=== PATIENT | female | born 1985 | race Hispanic/Latino ===

== ENCOUNTER 2016-11-16 03:32 | Inpatient (IN) | payer MEDICAID ==
[2016-11-16] MEDS ORDERED: LACTATED RINGERS 1,000 ML ONE (04:06)
--- NOTE | 2016-11-16 04:21 | History and Physical Report ---
History of Present Illness Date of examination: 11/16/16 Date of admission: 11/16/16 03:58 Chief complaint: Rupture of membranes this a.m. History of present illness: 31-year-old at 40+ weeks presents with spontaneous rupture of membranes; she is a [facility] patient. care was unremarkable per patient. She is status post rupture of membranes at 2 AM, in triage, she is 5 cm dilated and cephalic presentation. 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 denies: chlamydia, gonorrhea, hepatitis B, hepatitis C, HIV, syphilis, trichomonas Social history: , full code. denies: smoking, alcohol abuse, prescription drug abuse, IV drug use - Obstetrical History Expected Date of Delivery: 11/11/16 Actual Gestation: 40 Week(s) 5 Day(s) : 6 Para: 5 Number of Living Children: 4 ( from SIDs at 4 mths) Medications and Allergies Allergies Allergy/AdvReac Type Severity Reaction Status Date / Time No Known Allergies Allergy Verified 04/11/14 08:04 Home Medications Medication Instructions Recorded Confirmed Last Taken Type valACYclovir [Valtrex] 500 mg PO BID 04/11/14 04/11/14 04/10/14 History Review of Systems Constitutional: no fever, no chills, no sweats Cardiovascular: no chest pain, no orthopnea, no syncope, no lightheadedness, no shortness of breath Respiratory: no cough with sputum, no excessive sputum, no hemoptysis, no shortness of breath, no dyspnea on exertion Gastrointestinal: abdominal pain (Painful contractions), no nausea, no vomiting , no heartburn Genitourinary: leakage of fluid, contractions, no vaginal bleeding, no vaginal discharge, no genital sores - Vital Signs Vital signs: Vital Signs Pulse BP Pulse Ox 100 H 134/63 97 11/16/16 04:03 11/16/16 04:03 11/16/16 04:03 Temp Pulse Resp BP Pulse Ox 89 134/63 97 11/16/16 04:13 11/16/16 04:03 11/16/16 04:13 - Physical Exam Abdomen: Positive: normal appearance, soft. Negative: distention, tenderness, guarding, rigidity Uterus: Positive: enlarged (EFW ~ 3400 but limited due to body habitus) Adnexa: both: normal Extremities: Positive: normal - Obstetrical FHR: category 1 Cervical Dilatation: 5 (per RN) Results All other labs normal. Assessment and Plan A: 31 y/o at 40+5 wks in active labour -cat 1 tracing P: -Admit -Routine labs -Epidural when necessary -Anticipate Normal vaginal delivery - Patient Problems (1) 40 weeks gestation of Current Visit: Yes Status: Acute (2) Spontaneous rupture of amniotic membranes Current Visit: Yes Status: Acute (3) Grand multipara Current Visit: Yes Status: Acute (4) Grand multipara in labor Current Visit: Yes Status: Acute
[2016-11-16] MEDS ORDERED: ZOFRAN IV PRN ×2 (04:27→10:00)
[2016-11-16] MEDS ORDERED: BRETHINE IVP PRN (04:27)
[2016-11-16] MEDS ORDERED: ePHEDrine SULFATE IV PRN ×2 (04:27→05:31)
[2016-11-16] MEDS ORDERED: BRETHINE SUB-Q PRN (04:27)
[2016-11-16] MEDS ORDERED: SUBLIMAZE IV PRN (04:27)
[2016-11-16] MEDS ORDERED: MINERAL OIL PO PRN (04:27)
[2016-11-16 04:43] LABS: Hematocrit 37.5 % (30.3-42.9); Hemoglobin 12.6 gm/dl (10.1-14.3); Mean Corpuscular HGB Conc 34 % (30-34); Mean Corpuscular Hemoglobin 29 pg (28-32); Mean Corpuscular Volume 85 fl (79-97); Platelet Count 212 K/mm3 (140-440); Red Blood Count 4.39 M/mm3 (3.65-5.03); Red Cell Distribution Width 15.1 % (13.2-15.2); White Blood Count 11.9 K/mm3 (4.5-11.0)
[2016-11-16] MEDS ORDERED: LACTATED RINGERS 1,000 ML IV SCH (05:00)
[2016-11-16] MEDS ORDERED: PITOCin/NS 20 UNIT/1000ML DRIP 1,000 ML IV SCH ×2 (05:00→10:00)
[2016-11-16] MEDS ORDERED: PITOCin/NS 30 UNIT/500ML 500 ML IV SCH (05:00)
[2016-11-16] MEDS ORDERED: NARCAN 2 MG/2 ML IV PRN (05:31)
--- NOTE | 2016-11-16 05:31 | Anesthesia Consultation ---
Anesthesia Consult and Med Hx Date of service: 11/16/16 - Airway Anesthetic Teeth Evaluation: Good ROM Head & Neck: Adequate Mental/Hyoid Distance: Adequate Mallampati Class: Class II Intubation Access Assessment: Good - Pulmonary Exam CTA: Yes - Cardiac Exam Cardiac Exam: No Murmur - Pre-Operative Health Status ASA Pre-Surgery Classification: ASA2 Proposed Anesthetic Plan: Epidural - Pulmonary Hx Asthma: No COPD: No Hx Pneumonia: No - Cardiovascular System Hx Hypertension: No - Central Nervous System Hx Seizures: No Hx Psychiatric Problems: No - Endocrine Hx Renal Disease: No Hx End Stage Renal Disease: No Hx Hypothyroidism: No Hx Hyperthyroidism: No - Hematic Hx Anemia: No Hx Sickle Cell Disease: No - Other Systems Hx Alcohol Use: No
[2016-11-16] MEDS ORDERED: fentaNYL-BUPIV 2 MCG/ML-0.125% 100 ML EPIDURAL SCH (06:00)
[2016-11-16] MEDS: PITOCin/NS 30 UNIT/500ML 500 ML IV SCH ×3 (07:58→08:36)
--- NOTE | 2016-11-16 08:32 | Progress Note ---
Assessment and Plan - Patient Problems (1) 40 weeks gestation of Current Visit: Yes Status: Acute (2) Spontaneous rupture of amniotic membranes Current Visit: Yes Status: Acute (3) Grand multipara Current Visit: Yes Status: Acute (4) Grand multipara in labor Current Visit: Yes Status: Acute Subjective - Subjective Date of service: 11/16/16 Patient reports: new complaints, vaginal bleeding (bloody show), movement normal, contractions Objective - Vital Signs Vital Signs: Vital Signs - 12hr 11/16/16 11/16/16 11/16/16 04:03 04:08 04:13 Temperature Pulse Rate 100 H 95 H 89 Pulse Rate [ From Monitor] Respiratory Rate Blood Pressure 134/63 Blood Pressure [Right Arm] O2 Sat by Pulse 97 96 97 Oximetry 11/16/16 11/16/16 11/16/16 04:18 04:23 04:28 Temperature Pulse Rate 99 H 98 H 93 H Pulse Rate [ From Monitor] Respiratory Rate Blood Pressure Blood Pressure [Right Arm] O2 Sat by Pulse 97 98 95 Oximetry 11/16/16 11/16/16 11/16/16 04:33 04:38 04:44 Temperature Pulse Rate 95 H 103 H 105 H Pulse Rate [ From Monitor] Respiratory Rate Blood Pressure Blood Pressure [Right Arm] O2 Sat by Pulse 97 96 98 Oximetry 11/16/16 11/16/16 11/16/16 04:45 04:48 04:53 Temperature Pulse Rate 103 H 98 H 106 H Pulse Rate [ From Monitor] Respiratory Rate Blood Pressure Blood Pressure [Right Arm] O2 Sat by Pulse 94 96 96 Oximetry 11/16/16 11/16/16 11/16/16 04:58 05:03 05:09 Temperature Pulse Rate 103 H 100 H 108 H Pulse Rate [ From Monitor] Respiratory Rate Blood Pressure Blood Pressure [Right Arm] O2 Sat by Pulse 96 98 99 Oximetry 11/16/16 11/16/16 11/16/16 05:14 05:19 05:23 Temperature Pulse Rate 117 H 117 H 112 H Pulse Rate [ From Monitor] Respiratory Rate Blood Pressure Blood Pressure [Right Arm] O2 Sat by Pulse 80 L 99 97 Oximetry 11/16/16 11/16/16 11/16/16 05:26 05:29 05:31 Temperature Pulse Rate 105 H 99 H 106 H Pulse Rate [ From Monitor] Respiratory Rate Blood Pressure 130/105 125/69 122/65 Blood Pressure [Right Arm] O2 Sat by Pulse 93 96 Oximetry 11/16/16 11/16/16 11/16/16 05:33 05:34 05:37 Temperature Pulse Rate 107 H 107 H 96 H Pulse Rate [ From Monitor] Respiratory Rate Blood Pressure 122/60 121/60 Blood Pressure [Right Arm] O2 Sat by Pulse 99 Oximetry 11/16/16 11/16/16 11/16/16 05:39 05:40 05:43 Temperature Pulse Rate 106 H 107 H 110 H Pulse Rate [ From Monitor] Respiratory Rate Blood Pressure 117/58 120/61 Blood Pressure [Right Arm] O2 Sat by Pulse 99 99 Oximetry 11/16/16 11/16/16 11/16/16 05:46 05:48 05:52 Temperature Pulse Rate 105 H 105 H 98 H Pulse Rate [ From Monitor] Respiratory Rate Blood Pressure 114/58 108/58 Blood Pressure [Right Arm] O2 Sat by Pulse 98 Oximetry 11/16/16 11/16/16 11/16/16 05:53 05:57 05:58 Temperature Pulse Rate 107 H 101 H 104 H Pulse Rate [ From Monitor] Respiratory Rate Blood Pressure 108/57 Blood Pressure [Right Arm] O2 Sat by Pulse 97 97 Oximetry 11/16/16 11/16/16 11/16/16 06:04 06:08 06:09 Temperature Pulse Rate 98 H 95 H 97 H Pulse Rate [ From Monitor] Respiratory Rate Blood Pressure Blood Pressure [Right Arm] O2 Sat by Pulse 96 94 96 Oximetry 11/16/16 11/16/16 11/16/16 06:11 06:13 06:16 Temperature Pulse Rate 99 H 100 H Pulse Rate [ From Monitor] Respiratory 18 Rate Blood Pressure 121/60 110/55 Blood Pressure [Right Arm] O2 Sat by Pulse 97 Oximetry 11/16/16 11/16/16 11/16/16 06:18 06:20 06:25 Temperature Pulse Rate 95 H 99 H 100 H Pulse Rate [ From Monitor] Respiratory Rate Blood Pressure Blood Pressure [Right Arm] O2 Sat by Pulse 96 92 99 Oximetry 11/16/16 11/16/16 11/16/16 06:30 06:32 06:35 Temperature Pulse Rate 100 H 101 H 100 H Pulse Rate [ From Monitor] Respiratory Rate Blood Pressure 101/52 Blood Pressure [Right Arm] O2 Sat by Pulse 99 99 Oximetry 11/16/16 11/16/16 11/16/16 06:40 06:44 06:47 Temperature Pulse Rate 96 H 96 H 100 H Pulse Rate [ From Monitor] Respiratory Rate Blood Pressure 93/51 Blood Pressure [Right Arm] O2 Sat by Pulse 98 97 Oximetry 11/16/16 11/16/16 11/16/16 06:49 06:55 07:00 Temperature Pulse Rate 89 94 H 104 H Pulse Rate [ From Monitor] Respiratory Rate Blood Pressure Blood Pressure [Right Arm] O2 Sat by Pulse 96 99 98 Oximetry 11/16/16 11/16/16 11/16/16 07:01 07:05 07:10 Temperature Pulse Rate 98 H 98 H 116 H Pulse Rate [ From Monitor] Respiratory Rate Blood Pressure 99/51 Blood Pressure [Right Arm] O2 Sat by Pulse 98 98 Oximetry 11/16/16 11/16/16 11/16/16 07:15 07:20 07:25 Temperature Pulse Rate 98 H 110 H 95 H Pulse Rate [ From Monitor] Respiratory Rate Blood Pressure 101/51 Blood Pressure [Right Arm] O2 Sat by Pulse 98 98 98 Oximetry 11/16/16 11/16/16 11/16/16 07:30 07:35 07:39 Temperature 97.5 F L Pulse Rate 105 H 107 H 109 H Pulse Rate [ 105 H From Monitor] Respiratory 18 Rate Blood Pressure 101/58 Blood Pressure 101/58 [Right Arm] O2 Sat by Pulse 98 99 97 Oximetry 11/16/16 11/16/16 11/16/16 07:45 07:50 07:54 Temperature Pulse Rate 97 H 103 H 95 H Pulse Rate [ From Monitor] Respiratory Rate Blood Pressure 87/56 Blood Pressure [Right Arm] O2 Sat by Pulse 98 96 96 Oximetry 11/16/16 11/16/16 11/16/16 07:58 08:00 08:05 Temperature Pulse Rate 95 H 93 H 98 H Pulse Rate [ From Monitor] Respiratory Rate Blood Pressure 99/59 104/62 Blood Pressure [Right Arm] O2 Sat by Pulse 97 96 Oximetry 11/16/16 11/16/16 11/16/16 08:10 08:14 08:16 Temperature Pulse Rate 99 H 103 H 95 H Pulse Rate [ From Monitor] Respiratory Rate Blood Pressure 104/57 Blood Pressure [Right Arm] O2 Sat by Pulse 96 96 Oximetry 11/16/16 11/16/16 11/16/16 08:19 08:25 08:30 Temperature Pulse Rate 102 H 101 H 99 H Pulse Rate [ From Monitor] Respiratory Rate Blood Pressure Blood Pressure [Right Arm] O2 Sat by Pulse 97 94 95 Oximetry - Exam FHR: category 1 Cervical Dilatation: 8 - Labs Labs: Abnormal Labs 11/16/16 04:20 WBC 11.9 H Laboratory Results - last 24 hr 11/16/16 11/16/16 04:20 04:20 WBC 11.9 H RBC 4.39 Hgb 12.6 Hct 37.5 MCV 85 MCH 29 MCHC 34 RDW 15.1 Plt Count 212 Blood Type A POSITIVE Antibody Screen Negative
[2016-11-16] MEDS ORDERED: CYTOTEC ONE (09:16)
[2016-11-16] MEDS ORDERED: METHERGINE IM ONE ×2 (09:21→09:25)
--- NOTE | 2016-11-16 09:34 | Procedure Note ---
OB Delivery Note - Delivery Date of Delivery: 11/16/16 Surgeon: YARED OZUNA Estimated blood loss: 500cc - Vaginal Delivery presentation: vertex Delivery position: OA Intrapartum events: meconium, hemorrhage Delivery induction: none Delivery augmentation: pitocin Delivery monitor: external FHT, external uterine Route of delivery: Delivery placenta: spontaneous Delivery cord: 3 umbilical vessels Episiotomy: none Delivery laceration: none Anesthesia: epidural - Infant A at 1 minute: 9 at 5 minutes: 9 Infant Gender: Female (Del @ 09:21 AM, weight is 8#7 or 3827 gms)
[2016-11-16] MEDS ORDERED: CYTOTEC PR ONE ×2 (09:35→10:30)
[2016-11-16] MEDS ORDERED: SODIUM CHLORIDE FLUSH SYRINGE 10 ML IV PRN (10:00)
[2016-11-16] MEDS ORDERED: BENADRYL PO PRN (10:00)
[2016-11-16] MEDS ORDERED: DULCOLAX PR PRN (10:00)
[2016-11-16] MEDS ORDERED: DERMOPLAST TP PRN (10:00)
[2016-11-16] MEDS ORDERED: TYLENOL PO PRN ×2 (10:00→10:30)
[2016-11-16] MEDS ORDERED: PHENERGAN PR PRN (10:30)
[2016-11-16] MEDS ORDERED: PHENERGAN PO PRN (10:30)
[2016-11-16] MEDS ORDERED: LANSINOH TP PRN (11:00)
[2016-11-16] MEDS ORDERED: TUCKS PAD TP PRN (11:00)
[2016-11-16] MEDS ORDERED: SENOKOT S PO SCH (11:00)
[2016-11-16] MEDS: MOTRIN PO SCH ×3 (12:30→23:40)
[2016-11-16] MEDS: NORCO 5/325 PO PRN ×2 (16:53→22:36)
[2016-11-16] MEDS ORDERED: MILK OF MAGNESIA PO PRN (22:00)
[2016-11-16] MEDS: FEOSOL PO SCH (22:36)
[2016-11-16] MEDS: COLACE PO SCH (22:36)
[2016-11-16 23:01] LABS: Hemoglobin 12.1 gm/dl (10.1-14.3)
[2016-11-17] MEDS: MOTRIN PO SCH ×4 (05:24→23:42)
[2016-11-17] MEDS ORDERED: BOOSTRIX IM ONE (06:00)
--- NOTE | 2016-11-17 08:06 | Progress Note ---
Assessment and Plan PPD # 1 s/p -Doing well P: -Depo-Provera now -Continue routine care -Anticipate discharge in 24 hours - Patient Problems (1) 40 weeks gestation of Current Visit: Yes Status: Acute (2) Spontaneous rupture of amniotic membranes Current Visit: Yes Status: Acute (3) Grand multipara Current Visit: Yes Status: Acute (4) Grand multipara in labor Current Visit: Yes Status: Acute (5) (normal spontaneous vaginal delivery) Current Visit: Yes Status: Acute Subjective - Subjective Date of service: 11/17/16 Principal diagnosis: PPD# 1 Interval history: Patient seen and examined, stable. Adequate bowel bladder function ambulating without difficulty. Desires contraception at this time with Patient reports: appetite normal, voiding normally, pain well controlled, flatus , ambulating normally, no dizzy ambulation [place]: doing well Objective - Vital Signs Latest vital signs: Vital Signs Temp Pulse Pulse Resp BP BP Pulse Ox 11/17/16 04:54 97.5 F L 76 20 94/60 11/16/16 21:01 98.1 F 84 18 121/68 11/16/16 16:53 20 11/16/16 15:59 98.8 F 76 20 100/66 11/16/16 14:10 89 20 135/65 11/16/16 12:02 98.6 F 76 18 106/70 11/16/16 11:20 98 F 72 16 102/60 11/16/16 10:45 81 104/53 11/16/16 10:44 78 110/53 11/16/16 10:33 83 105/51 11/16/16 10:21 86 73/48 11/16/16 10:16 87 73/51 11/16/16 10:01 85 72/39 11/16/16 09:46 94 H 132/63 11/16/16 09:31 97 H 150/72 11/16/16 09:17 102 H 136/63 11/16/16 09:09 106 H 96 11/16/16 09:05 104 H 96 11/16/16 09:01 99 H 112/68 93 11/16/16 09:00 109 H 97 11/16/16 08:55 106 H 98 11/16/16 08:49 110 H 97 11/16/16 08:46 103 H 116/67 11/16/16 08:45 102 H 97 11/16/16 08:40 104 H 96 11/16/16 08:35 95 H 96 11/16/16 08:32 97 H 94 11/16/16 08:30 98 H 97/55 95 11/16/16 08:25 101 H 94 11/16/16 08:19 102 H 97 11/16/16 08:16 95 H 104/57 11/16/16 08:14 103 H 96 11/16/16 08:10 99 H 96 11/16/16 08:05 98 H 96 Intake and Output 11/16/16 11/17/16 11/17/16 22:59 06:59 14:59 Intake Total 1210 240 Output Total 1200 Balance 10 240 Intake: IV 250 PITOCin/NS 20 UNIT/1000ML 250 DRIP 1,000 ML @ 125 mls/ hr IV DIRECT ESTUARDO Rx#: [id number] Oral 960 240 Output: Urine 1200 Void 1200 Other: Total, Intake Amount 240 240 Total, Output Amount 800 # Voids Void 1 1 - Exam Abdomen: Present: normal appearance, soft. Absent: distention, tenderness, guarding, rigidity Uterus: Present: fundal height below umbilicus. Absent: tenderness Extremities: Present: normal
--- NOTE | 2016-11-17 08:09 | Discharge Summary ---
Providers - Providers Date of Admission: 11/16/16 03:58 Date of discharge: 11/18/16 Attending physician: YARED OZUNA Primary care physician: MAY SKAGSG Hospitalization Reason for admission: active labor, rupture of membranes Delivery: Episiotomy: none Laceration: none Other procedures: none complications: none Discharge diagnosis: IUP at term delivered baby: female Hospital course: Uncomplicated course Condition at discharge: Good Disposition: DISCHARGED TO HOME OR SELFCARE - Discharge Diagnoses (1) (normal spontaneous vaginal delivery) Status: Acute (2) 40 weeks gestation of Status: Acute (3) Spontaneous rupture of amniotic membranes Status: Acute (4) Grand multipara Status: Acute (5) Grand multipara in labor Status: Acute Plan - Discharge Medications Prescriptions: Ibuprofen [Motrin 600 MG tab] 600 mg PO Q8H PRN #30 tablet PRN Reason: Pain Multivitamin with Iron [Multivitamins with Iron] 1 each PO DAILY #30 tablet - Provider Discharge Summary Activity: no sex for 6 weeks, no heavy lifting 4 weeks, no strenuous exercise Diet: routine Additional instructions: [] Smoking cessation referral if applicable(refer to patient education folder for contact #) [] Refer to [facility] Booklet Call your doctor immediately for: * Fever > 100.5 * Heavy vaginal bleeding ( >1 pad per hour) * Severe persistent headache * Shortness of breath * Reddened, hot, painful area to leg or breast * Drainage or odor from incision. * Keep incision clean and dry at all times and follow doctor's instructions regarding bathing/showering - Follow up plan Follow up: MAY SKAGGS MD [Primary Care Provider] - 6 Weeks
[2016-11-17] MEDS ORDERED: DEPO-PROVERA (CONTRACEPTION) IM NR (08:30)
--- NOTE | 2016-11-17 08:42 | Progress Note ---
Subjective Date of service: 11/17/16 Principal diagnosis: PPD# 1 Interval history: 1st day after normal spontaneous vaginal delivery Patient is in the bed, comfortably resting. Epidural catheter has been removed earlier. Ambulated well. No residual neurological deficit. No anesthesia complications Objective - Constitutional Vitals: Vital Signs - 12hr 11/16/16 11/17/16 21:01 04:54 Temperature 98.1 F 97.5 F L Pulse Rate [ 84 76 Right Radial] Respiratory 18 20 Rate Blood Pressure 121/68 94/60 [Right Arm] - Labs CBC & Chem 7: 11/16/16 22:35
[2016-11-17] MEDS: COLACE PO SCH ×2 (09:38→22:00)
[2016-11-17] MEDS: FEOSOL PO SCH ×2 (09:38→22:01)
[2016-11-17] MEDS: PRENATAL VITAMIN PO SCH (09:38)
[2016-11-17] MEDS ORDERED: FLUARIX QUAD 2016-2017(36 MOS+) IM ONE (12:00)
[2016-11-17] MEDS: NORCO 5/325 PO PRN (22:06)
[2016-11-18] MEDS: MOTRIN PO SCH ×2 (05:39→12:55)
[2016-11-18] MEDS: COLACE PO SCH (10:21)
[2016-11-18] MEDS: FEOSOL PO SCH (10:21)
[2016-11-18] MEDS: PRENATAL VITAMIN PO SCH (10:21)
[2016-11-18] MEDS ORDERED: FLUARIX QUAD 2016-2017(36 MOS+) IM ONE (12:00)
--- NOTE | 2016-11-18 12:45 | XRay Report ---
RIGHT FOOT: The bony architecture is intact. Bony alignment is normal. No soft tissue abnormalities are seen. The joint spaces appear preserved. IMPRESSION: Normal right foot.
[2016-11-18] MEDS: NORCO 5/325 PO PRN (14:49)
[2016-11-18 17:53] VITALS: BP 120/70
== END 2016-11-18 16:25 | disposition home or self-care (01) | DRG 774 ==
LOC: TRG 03:32 → LD 03:58 → OB 11:32
PROVIDERS: ADMIT Obstetrics & Gynecology Gynecology; ATTEND Obstetrics & Gynecology Gynecology
PROC: 10E0XZZ Delivery of Products of Conception, External Approach (ICD-10-PCS; principal; 2016-11-16)
PROC: 3E0S3CZ (ICD-10-PCS; 2016-11-16)
PROC: 00HU33Z Insertion of Infusion Device into Spinal Canal, Percutaneous Approach (ICD-10-PCS; 2016-11-16)
PROC: 3E0234Z Introduction of Serum, Toxoid and Vaccine into Muscle, Percutaneous Approach (ICD-10-PCS; 2016-11-17)
DX: O77.0 Labor and delivery complicated by meconium in amniotic fluid (principal); O72.1 Other immediate postpartum hemorrhage; O09.43 Supervision of pregnancy with grand multiparity, third trimester; Z3A.40 40 weeks gestation of pregnancy; Z37.0 Single live birth; Z79.899 Other long term (current) drug therapy; Z23 Encounter for immunization; Z84.82 Family history of sudden infant death syndrome
CPT/HCPCS: 36415; 85014; 85018; 85027; 86850; 86900; 86901; 90471; 90686; 90715; 99211; A6250; G0463; J1050; J2210; J2590; J3010; J7120; Q0169

== ENCOUNTER 2017-01-07 05:43 | Day surgery (SDC) | payer MEDICAID ==
[2017-01-04 09:30] LABS: Hematocrit 38.1 % (30.3-42.9); Hemoglobin 12.6 gm/dl (10.1-14.3); Mean Corpuscular HGB Conc 33 % (30-34); Mean Corpuscular Hemoglobin 28 pg (28-32); Mean Corpuscular Volume 84 fl (79-97); Platelet Count 292 K/mm3 (140-440); Red Blood Count 4.55 M/mm3 (3.65-5.03); Red Cell Distribution Width 13.7 % (13.2-15.2); White Blood Count 8.2 K/mm3 (4.5-11.0)
--- NOTE | 2017-01-07 06:58 | Short Stay Summary ---
Short Stay Documentation Date of service: 01/07/17 Narrative H&P: c/o: Desires permanent sterilization 31-year-old presents for permanent sterilization. Pmedhx/Sughx: Unremarkable A: Acute situational anxiety regarding P: -Patient and I discussed details of procedure. She understands possible need for laparotomy due to her obesity. Discussed risks of surgery in detail and she has signed consent -Proceed with laparoscopic bilateral tubal ligation - History Past Medical History: No medical history Past Surgical History: No surgical history Social history: full code, no smoking, no alcohol abuse, no prescription drug abuse, no IV drug use - Allergies and Medications Current Medications: Allergies No Known Allergies Allergy (Verified 01/03/17 12:30) Home Medications Medication Instructions Recorded Confirmed Last Taken Type Ferrous Sulfate [Ferrous Sulfate] 1 tab PO TID 01/03/17 01/03/17 Unknown History - Physical exam General appearance: no acute distress, obese HEENT: Atraumatic Lungs: Clear to auscultation, Normal air movement Heart: Regular rate, Normal S1, Normal S2 Gastrointestinal: normal, normoactive bowel sounds, no tenderness, no guarding Extremities: no ischemia Neurological: Normal gait, Strength at 5/5 X4 ext - Brief post op/procedure progress note Date of procedure: 01/07/17 Pre-op diagnosis: Desires permanent sterilization, Morbid Obesity Post-op diagnosis: same Procedure: Laparoscopic tubal ligation, see op note Anesthesia: GETA Findings: See OP note Estimated blood loss: none Pathology: none Condition: stable - Hospital course Hospital course: Uncomplicated post-op course, she is discharged in stable condition - Disposition Condition at discharge: Good Disposition: DISCHARGED TO HOME OR SELFCARE - Discharge Diagnoses (1) Status post tubal ligation Status: Acute (2) S/P laparoscopic procedure Status: Acute Short Stay Discharge Plan Activity: no restrictions Weight Bearing Status: Weight Bear as Tolerated Diet: regular Wound: open to air Follow up with: YARED OZUNA MD [Staff Physician] - 7 Days Prescriptions: HYDROcodone/APAP 5-325 [[place] 5/325] 1 each PO Q6HR PRN #30 tablet PRN Reason: Pain Ibuprofen [Motrin 600 MG tab] 600 mg PO Q8H PRN #30 tablet PRN Reason: Pain
[2017-01-07] MEDS ORDERED: LACTATED RINGERS 1,000 ML ONE ×2 (07:19→08:37)
[2017-01-07] MEDS ORDERED: PEPCID IV ONE (07:19)
--- NOTE | 2017-01-07 07:27 | Anesthesia Day of Surgery ---
Anesthesia Day of Surgery - Day of Surgery Patient Examined: Yes Patient H&P Reviewed: Yes Patient is NPO: Yes
--- NOTE | 2017-01-07 07:27 | Anesthesia Consultation ---
Anesthesia Consult and Med Hx Date of service: 01/07/17 - Airway Anesthetic Teeth Evaluation: Good ROM Head & Neck: Adequate Mental/Hyoid Distance: Adequate Mallampati Class: Class II Intubation Access Assessment: Probably Good - Pulmonary Exam CTA: Yes - Cardiac Exam Cardiac Exam: RRR - Pre-Operative Health Status ASA Pre-Surgery Classification: ASA3 Proposed Anesthetic Plan: General (no previous GA) - Pulmonary Hx Smoking: Yes (former) Hx Asthma: No COPD: No Hx Pneumonia: No - Cardiovascular System Hx Hypertension: No - Central Nervous System Hx Seizures: No Hx Psychiatric Problems: No - Endocrine Hx Renal Disease: No Hx End Stage Renal Disease: No Hx Hypothyroidism: No Hx Hyperthyroidism: No - Hematic Hx Anemia: Yes (7 wks post ) Hx Sickle Cell Disease: No - Other Systems Hx Alcohol Use: No Hx Cancer: No
[2017-01-07] MEDS ORDERED: LACTATED RINGERS 1,000 ML IV SCH (07:28)
[2017-01-07] MEDS ORDERED: XYLOCAINE MPF 2% ONE (07:29)
[2017-01-07] MEDS ORDERED: PEPCID IV NR (07:30)
[2017-01-07] MEDS ORDERED: VERSED ONE (07:30)
[2017-01-07] MEDS ORDERED: DIPRIVAN 10 MG/ML IV ONE (07:30)
[2017-01-07] MEDS ORDERED: SUBLIMAZE ONE (07:30)
[2017-01-07] MEDS ORDERED: DILAUDID IV PRN (07:30)
[2017-01-07] MEDS ORDERED: ZEMURON IV ONE (07:32)
[2017-01-07] MEDS ORDERED: ROBINUL ONE (08:14)
[2017-01-07] MEDS ORDERED: NEOSTIGMINE ONE (08:14)
[2017-01-07] MEDS ORDERED: ZOFRAN ONE (08:15)
[2017-01-07] MEDS ORDERED: MARCAINE 0.25% INFILTRATI ONE (08:18)
[2017-01-07] MEDS ORDERED: NACL 0.9% IR ONE (08:18)
[2017-01-07] MEDS ORDERED: NORCO 5/325 PO PRN (08:48)
[2017-01-07] MEDS ORDERED: MOTRIN PO PRN (08:48)
[2017-01-07] MEDS ORDERED: TYLENOL PO PRN (08:48)
[2017-01-07] MEDS ORDERED: TORADOL ONE (08:53)
--- NOTE | 2017-01-07 08:55 | Operative Report ---
Operative Report Operative Report: DATE: 01/07/2017 PREOPERATIVE DIAGNOSIS: Desires permanent sterilization, obesity class III POSTOP DIAGNOSIS: Same NAME OF PROCEDURE: Laparoscopic bilateral tubal ligation via fulguration SURGEON: YARED OZUNA MD TECHNICAL COMMUNICATION TEACHER: [] ANESTHESIA: General endotracheal EBL: None PATHOLOGY SPECIMEN: None URINE OUTPUT: [] FINDINGS: Substantial subcutaneous fat, otherwise normal uterus tubes and ovaries bilaterally DESCRIPTION OF PROCEDURE: After informed consent, patient was taken to the operating room were she was placed in the dorsal lithotomy position and then was prepped and draped in a sterile fashion. Attention was then turned to the patient's vagina, where a Delaney speculum was placed without difficulty. Single- tooth tenaculum was used to grab the anterior lip and uterus was sounded to 7 cm , the uterine manipulator was then advanced into the patient's cervix without difficulty as means to manipulate the uterus. Attention was then turned to Patient's abdomen, where a 1-2 cm incision was made in the patient's umbilicus fold. Veress needle was attempted but was unsuccessful due to substantial subcutaneous fat. Decision was made to switch to Perez method. The 1-2 cm incision in the umbilical fold was extended. Using S retractors, we dissected the subcutaneous tissue to expose the fascia. Fascia was grasped with Kockers, elevated and incised in the midline. Intra- abdominal acess was gained through the peritoneal layer. CO2 Gas was then used to obtain intra-abdominal insufflation. Observation showed normal uterus tubes and ovaries bilaterally; a second 5 mm port was advanced into the abdomen under direct visualization in the suprapubic region. Using Vanessa polar cautery both left and right tubes were grasped cauterized and a good 3 cm segment in each was no noted to be cauterized. A thorough review of the abdomen showed normal upper abdomen ophthalmology noted. All instruments were then removed under direct visualization with no bleeding noted. Umbilicus ports was closed using 0 Vicryl. Instrument counts were correct x 2. She was transfered to PACU in stable condition.
--- NOTE | 2017-01-07 09:29 | Post Anesthesia Evaluation ---
- Post Anesthesia Evaluation Patient Participated: Yes Airway Patent: Yes Stable Respiratory Function: Yes Nausea/Vomiting: No Temp > 96.8F: Yes Pain Manageable: Yes Adequeate Hydration: Yes Anesthesia Complications: No Block Receding Appropriately: Not Applicable Patient on Ventilator: No
[2017-01-07 10:12] VITALS: BP 117/79
--- NOTE | 2017-01-07 23:04 | Admit Criteria Form ---
Admission Criteria Documentation: AMBULATORY SURGERY EXCEPTION CRITERIA Ambulatory Surgery Exception Criteria ( Place 'X' for any and all applicable criteria): Surgery or procedure performed on ambulatory basis may require inpatient stay for[A] ANY ONE of the following(1)(2)(3)(4)(5)(6)(7)(8)(9): [X] I. A preoperative situation, condition, or finding that warrants inpatient stay as indicated by ANY ONE of the following: [] a) Inpatient care needed because of severity of a disease or condition rather than the surgery (eg, severe cardiac or respiratory disease, severe infection) (15) (16 ) (17) (18) [] b) Emergent procedure (eg, angioplasty for acute ischemia)(19) [] c) Complex surgical approach or situation as indicated by ANY ONE of the following(3): [] i) Open approach needed instead of usual endoscopic, transcatheter, or other less invasive procedure [] ii) Difficult approach because of previous operation [] iii) Airway monitoring required after open neck procedures(20)(21) [] iv) Large mass requiring unusually extensive dissection [] v) Additional complicating feature requiring inpatient care (eg, drain management)(22(23): [X] d) Major surgery in a pt with high anesthetic risk as indicated by ANY ONE of the following (2)(3)(5)(7)(8): [X] i) ASA risk class III or higher (severe systemic disease impairing function) [D] [] ii) Advanced age (eg, older than 85 years)(14)(24) [] iii) Symptomatic heart failure(25) [] iv) Symptomatic asthma or COPD(8)(21) [] v) Morbid obesity with hemodynamic or respiratory problems(20)( 21)(26)(27) [] vi) Obstructive sleep apnea(20)(21) [] vii) Former premature infants who are younger than 60 weeks [] viii) High risk for severe postoperative abnormalities (eg, severe postoperative hypocalcemia after parathyroidectomy for severe hyperparathyroidism)(27)( 28) [] ix) Unstable angina(25) [] e) Drug-related risk requiring inpatient stay as indicated by ANY ONE of the following(5)(10)(14)(32)(33) [] i) Procedure requires discontinuing drugs or other therapy (eg , antiarrhythmic medication, antiseizure medication), which necessitates inpatient observation or treatment.(18)(31) [] ii) Major surgery and high risk drug use as indicated by ANY ONE of the following: [] 1) Active abuse of cocaine or similar drug [] 2) Monoamine oxidase inhibitor use [] 3) Other drug identified as posing risk [] f) Inadequate outpatient care situation as indicated by ANY ONE of the following(5)(10)(14)(32)(33) [] i) Patient lives remote from medical facility and procedure has urgent complication potential, and temporary nearby residence cannot be arranged [] ii) Patient will have postprocedure incapacitation and inadequate assistance at home, or alternative level of care cannot be arranged. [] iii) Patient will have long general anesthesia or procedure side effect resolution time, and competent person to stay with patient on first postoperative night at home or alternative level of care cannot be arranged. []iv) Other inadequate outpatient situation that cannot be handled by other means [] II. A perioperative event, condition, or finding that warrants inpatient stay as indicated by ANY ONE of the following (1)(2)(3): [] a) Inadequate physiologic recovery: cardiovascular, respiratory, or hemodynamic status not normal or near preoperative baseline(18) [] b) Hemodynamic instability [] c) Patient not alert with near normal or baseline mental status [] d) Temperature not normal or as expected and not appropriate for outpatient treatment of condition [] e) Ambulatory or appropriate activity level status not yet achieved post procedure [E](34)(35)(36) [] f) Operative site not appropriate (eg, unexpected or excessive drainage or bleeding) [] g) Postoperative effects not resolved or adequately managed (eg, significant pain or vomiting not appropriate for outpatient or next level of care)(10)(12) [] h) Complicating features requiring inpatient care as indicated by ANY ONE of the following(37): [] i) Severe complications of procedure (eg, bowel injury, airway compromise, vascular injury,severe hemorrhage) [] ii) Extensive (eg, dissection far beyond usual scope of procedure ) or prolonged (eg, 120 minutes beyond usual) surgery needed requiring inpatient postoperative care [] iii) Conversion to an open or complex procedure that requires inpatient care (eg, open vs laparoscopic cholecystectomy, abdominal vs vaginal hysterectomy)(38) [] iv) Comorbid condition or test result identified during or post procedure that requires inpatient care (7) [] v) Malignant hyperthermia(30) [] vi) Other complicating feature requiring inpatient care(22)(23) Inpatient stay may be needed until ALL of the following are present (1)(2)(3)(4) (5)(6)(10)(14)(33)(40): []a) Physiologic recovery: cardiovascular, respiratory, and hemodynamic status normal or near preoperative baseline []b) Hemodynamic stability []c) Patient alert, with near normal or baseline mental status []d) Temperature appropriate: patient afebrile or temperature appropriate for outpt treatment of condition []e) Activity level appropriate: ambulatory or appropriate activity level post procedure []f) Operative site appropriate as indicated by ALL of the following: []i) Site dry or with expected drainage []ii) Any blood noted is as expected for procedure. []g) Postoperative effects resolved or managed as indicated by ALL of the following: []i) Pain management appropriate for outpatient (or next level of) care(10) []ii) Minimal nausea and vomiting: if present, successfully treated with oral medication(12) []iii) Headache, dizziness, or drowsiness (if present) are mild. []h) Voiding status acceptable as indicated by ANY ONE of the following: []i) Voiding spontaneously []ii) No voiding but instructions given for follow-up in 6 to 8 hours []iii) Urinary catheter in place, and instructions given for follow-up []i) Complicating features requiring inpatient care manageable at a lower level of care(37) []j) Comorbid conditions manageable at a lower level of care(37) The original [employer] content created by [employer] has been revised. The portions of the content which have been revised are identified through the use of italic text or in bold, and [facility] [employer] has neither reviewed nor approved the modified material. All other unmodified content is copyright [employer]. Please see references footnoted in the original [employer] edition 2016 Admission Criteria Met: Yes
== END 2017-01-07 10:28 | disposition home or self-care (01) ==
LOC: OR 05:43
PROVIDERS: ATTEND Obstetrics & Gynecology Gynecology
DX: Z30.2 Encounter for sterilization (principal); E66.9 Obesity, unspecified; Z68.41 Body mass index [BMI] 40.0-44.9, adult; Z87.891 Personal history of nicotine dependence
CPT/HCPCS: 36415; 58670; 81025; 85027; 86850; 86900; 86901; J1170; J1885; J2250; J2405; J2704; J2710; J3010; J7120